=== PATIENT | male | born 1995 | race Caucasian/White ===

== ENCOUNTER 2018-08-03 16:05 | Emergency (ER) | payer SELFPAY ==
[2018-08-03 16:25] VITALS: BP 120/83; PULSE 111; RESP 20; TEMP 97.9; O2SAT 94
[2018-08-03] MEDS ORDERED: APAP/HYDROCODONE 1 EACH TABLET PO ONE ×2 (16:46)
[2018-08-03] MEDS ORDERED: APAP/HYDROCODONE 1 EACH TABLET ONE (16:48)
== END 2018-08-03 18:00 | disposition home or self-care (01) | DRG 159 ==
LOC: ED 16:05
DX: S02.609A Fracture of mandible, unspecified, initial encounter for closed fracture (principal); W50.0XXA Accidental hit or strike by another person, initial encounter
CPT/HCPCS: 99282; 99283; A9270-GY